=== PATIENT | male | born 1965 | race African-American/Black ===

== ENCOUNTER 2022-12-16 04:10 | Day surgery (SDC) | payer OTHER ==
[2022-12-14 11:00] VITALS: BMI 34.2
[~2022-12-16 04:10] MED LIST: BUPIVACAINE HCL/PF 0.75% 10 ML VIAL PNB ONE; IOHEXOL 180 MG/1 ML ML IJ ONE; LIDOCAINE 1% P/F 10 MG/ML VIAL PNB ONE
[2022-12-16] MEDS ORDERED: LIDOCAINE HCL/PF 1% SDV 5ML VIAL ONE (07:25)
[2022-12-16] MEDS ORDERED: BUPIVACAINE HCL/PF 0.75% 10 ML VIAL ONE (07:25)
[2022-12-16 10:26] VITALS: RESP 18
[2022-12-16] MEDS ORDERED: BUPIVACAINE HCL/PF 0.75% 10 ML VIAL PNB ONE (11:26)
[2022-12-16] MEDS ORDERED: LIDOCAINE 1% P/F 10 MG/ML VIAL PNB ONE (11:29)
[2022-12-16 12:53] VITALS: BP 136/88; PULSE 64; TEMP 98.1
== END 2022-12-16 12:00 | disposition home or self-care (01) ==
LOC: JASU-SURG 04:10
PROVIDERS: ATTEND Pain Medicine Pain Medicine
PROC: 3E0T3BZ Introduction of Anesthetic Agent into Peripheral Nerves and Plexi, Percutaneous Approach (ICD-10-PCS; principal; 2022-12-16 11:00)
DX: M47.816 Spondylosis without myelopathy or radiculopathy, lumbar region (principal)
CPT/HCPCS: 76000-TC-FY

== ENCOUNTER 2023-01-24 04:30 | Day surgery (SDC) | payer OTHER ==
[2023-01-20 14:59] VITALS: BMI 34.2
[~2023-01-24 04:30] MED LIST changes: -IOHEXOL 180 MG/1 ML ML IJ ONE; -LIDOCAINE 1% P/F 10 MG/ML VIAL PNB ONE
[2023-01-24] MEDS ORDERED: BUPIVACAINE HCL/PF 0.75% 10 ML VIAL ONE (07:18)
[2023-01-24] MEDS ORDERED: LIDOCAINE HCL/PF 1% SDV 5ML VIAL ONE (07:19)
[2023-01-24] MEDS ORDERED: LIDOCAINE 1% P/F 10 MG/ML VIAL INF ONE ×2 (11:25)
[2023-01-24] MEDS ORDERED: BUPIVACAINE HCL/PF 0.75% 10 ML VIAL PNB ONE (11:29)
[2023-01-24 11:45] VITALS: RESP 20
[2023-01-24 12:32] VITALS: BP 130/86; PULSE 68; TEMP 98.6
[2023-01-24] MEDS ORDERED: ACETAMINOPHEN 500 MG TABLET (FP) PO PRN (16:19)
== END 2023-01-24 12:25 | disposition home or self-care (01) ==
LOC: JASU-SURG 04:30
PROVIDERS: ATTEND Pain Medicine Pain Medicine
PROC: 3E0T33Z Introduction of Anti-inflammatory into Peripheral Nerves and Plexi, Percutaneous Approach (ICD-10-PCS; 2023-01-24)
PROC: 3E0T3BZ Introduction of Anesthetic Agent into Peripheral Nerves and Plexi, Percutaneous Approach (ICD-10-PCS; principal; 2023-01-24 08:45)
DX: M47.816 Spondylosis without myelopathy or radiculopathy, lumbar region (principal)
CPT/HCPCS: 76000-TC-FY

== ENCOUNTER 2023-04-18 05:31 | Day surgery (SDC) | payer OTHER ==
[2023-04-17 12:35] VITALS: BMI 34.5
[~2023-04-18 05:31] MED LIST changes: +BUPIVACAINE HCL/PF 0.75% 10 ML VIAL NR ONE; -BUPIVACAINE HCL/PF 0.75% 10 ML VIAL PNB ONE; +DEXAMETHASONE SOD PHOSPHATE 10 MG/1 ML VIAL IM ONE; +LIDOCAINE HCL 1% PRESERVATIVE FREE - 30ML VIAL IJ ONE; +LIDOCAINE HCL/PF 2% SDV 5ML VIAL INF ONE
[2023-04-18] MEDS ORDERED: BUPIVACAINE HCL/PF 0.75% 10 ML VIAL ONE (07:59)
[2023-04-18] MEDS ORDERED: LIDOCAINE HCL/PF 1% SDV 5ML VIAL ONE (08:00)
[2023-04-18] MEDS ORDERED: DEXAMETHASONE SOD PHOSPHATE 10 MG/1 ML VIAL ONE (08:00)
[2023-04-18 12:14] VITALS: RESP 18
[2023-04-18] MEDS ORDERED: DEXAMETHASONE SOD PHOSPHATE 10 MG/1 ML VIAL IM ONE ×2 (13:41→13:56)
[2023-04-18] MEDS ORDERED: LIDOCAINE HCL/PF 2% SDV 5ML VIAL INF ONE ×2 (13:41→13:48)
[2023-04-18] MEDS ORDERED: BUPIVACAINE HCL/PF 0.75% 10 ML VIAL NR ONE ×2 (13:41→13:56)
[2023-04-18] MEDS ORDERED: LIDOCAINE HCL 1% PRESERVATIVE FREE - 30ML VIAL IJ ONE (13:41)
[2023-04-18 14:29] VITALS: BP 152/70; PULSE 60; TEMP 98.2
[2023-04-18] MEDS ORDERED: ACETAMINOPHEN 500 MG TABLET (FP) PO PRN (16:07)
== END 2023-04-18 14:29 | disposition home or self-care (01) ==
LOC: JASU-SURG 05:31
PROVIDERS: ATTEND Pain Medicine Pain Medicine
PROC: 015B3ZZ Destruction of Lumbar Nerve, Percutaneous Approach (ICD-10-PCS; principal; 2023-04-18 13:15)
DX: M47.816 Spondylosis without myelopathy or radiculopathy, lumbar region (principal)
CPT/HCPCS: 76000-TC-FY; J1100

== ENCOUNTER 2023-07-25 05:22 | Day surgery (SDC) | payer OTHER ==
[2023-07-07 14:31] VITALS: BMI 34.5
[~2023-07-25 05:22] MED LIST changes: +ACETAMINOPHEN 500 MG TABLET (FP) PO PRN; -BUPIVACAINE HCL/PF 0.75% 10 ML VIAL NR ONE; -DEXAMETHASONE SOD PHOSPHATE 10 MG/1 ML VIAL IM ONE; -LIDOCAINE HCL 1% PRESERVATIVE FREE - 30ML VIAL IJ ONE; -LIDOCAINE HCL/PF 2% SDV 5ML VIAL INF ONE
[2023-07-25] MEDS ORDERED: LIDOCAINE HCL/PF 2% SDV 5ML VIAL ONE (10:22)
[2023-07-25] MEDS ORDERED: BUPIVACAINE HCL/PF 0.75% 10 ML VIAL ONE (10:22)
[2023-07-25] MEDS ORDERED: LIDOCAINE HCL/PF 1% SDV 5ML VIAL ONE (10:22)
[2023-07-25] MEDS ORDERED: DEXAMETHASONE SOD PHOSPHATE 10 MG/1 ML VIAL ONE (10:22)
[2023-07-25] MEDS ORDERED: ACETAMINOPHEN 500 MG TABLET (FP) PO PRN (11:49)
[2023-07-25] MEDS ORDERED: BUPIVACAINE HCL/PF 0.75% 10 ML VIAL NR ONE (14:39)
[2023-07-25] MEDS ORDERED: DEXAMETHASONE SOD PHOSPHATE 10 MG/1 ML VIAL IM ONE (14:39)
[2023-07-25] MEDS ORDERED: LIDOCAINE HCL/PF 2% SDV 5ML VIAL INF ONE (14:39)
[2023-07-25] MEDS ORDERED: LIDOCAINE HCL 1%, 10 MG/ML (50 mL VIAL) NR ONE (14:39)
[2023-07-25 15:40] VITALS: BP 141/90; PULSE 60; RESP 16; TEMP 98.2
== END 2023-07-25 15:45 | disposition home or self-care (01) ==
LOC: JASU-SURG 05:22
PROVIDERS: ATTEND Pain Medicine Pain Medicine
PROC: 015B3ZZ Destruction of Lumbar Nerve, Percutaneous Approach (ICD-10-PCS; principal; 2023-07-25 13:15)
DX: M47.816 Spondylosis without myelopathy or radiculopathy, lumbar region (principal)
CPT/HCPCS: 76000-TC-FY; J1100

== ENCOUNTER 2024-04-19 04:20 | Day surgery (SDC) | payer OTHER ==
[2024-04-18 13:20] VITALS: BMI 33.7
[2024-04-19] MEDS: BUPIVACAINE 0.75% IN DEXTROSE/PF 2ML AMPULE NR ONE
[~2024-04-19 04:20] MED LIST changes: +ACETAMINOPHEN 500 MG TABLET (FP) PO ONE; -ACETAMINOPHEN 500 MG TABLET (FP) PO PRN
[2024-04-19] MEDS ORDERED: SODIUM CHLORIDE 0.9% P/F 10 ML VIAL IJ ONE (12:29)
[2024-04-19] MEDS: LIDOCAINE HCL 1% PRESERVATIVE FREE - 30ML VIAL PNB ONE ×3 (12:39)
[2024-04-19] MEDS: IOHEXOL 180 MG/1 ML ML IJ ONE (12:40)
[2024-04-19] MEDS: LIDOCAINE HCL/PF 2% SDV 5ML VIAL PNB ONE ×2 (12:41)
[2024-04-19] MEDS: DEXAMETHASONE SOD PHOSPHATE 10 MG/1 ML VIAL IVPUSH ONE ×2 (12:41)
[2024-04-19 13:04] VITALS: BP 130/85; PULSE 67; RESP 20; TEMP 97.3
== END 2024-04-19 13:08 | disposition home or self-care (01) ==
LOC: JASU-SURG 04:20
PROVIDERS: ATTEND Pain Medicine Pain Medicine
PROC: 3E0R3BZ Introduction of Anesthetic Agent into Spinal Canal, Percutaneous Approach (ICD-10-PCS; 2024-04-19)
PROC: 3E0R33Z Introduction of Anti-inflammatory into Spinal Canal, Percutaneous Approach (ICD-10-PCS; principal; 2024-04-19 12:36)
DX: M48.061 Spinal stenosis, lumbar region without neurogenic claudication (principal); M54.16 Radiculopathy, lumbar region
CPT/HCPCS: 76000-TC-FY; J1100

== ENCOUNTER 2024-10-17 04:39 | Day surgery (SDC) | payer OTHER ==
[2024-10-04 17:13] VITALS: BMI 33.5
[2024-10-17] MEDS ORDERED: LIDOCAINE HCL/PF 1% SDV 5ML VIAL ONE (07:50)
[2024-10-17] MEDS ORDERED: DEXAMETHASONE SOD PHOSPHATE 10 MG/1 ML VIAL ONE (07:50)
[2024-10-17 09:25] VITALS: RESP 18
[2024-10-17] MEDS ORDERED: ACETAMINOPHEN 500 MG TABLET (FP) PO PRN (09:28)
[2024-10-17] MEDS: LIDOCAINE HCL 1% PRESERVATIVE FREE - 30ML VIAL IJ ONE ×3 (10:09)
[2024-10-17] MEDS: IOHEXOL 180 MG/1 ML ML IJ ONE ×3 (10:13)
[2024-10-17] MEDS: DEXAMETHASONE SOD PHOSPHATE 10 MG/1 ML VIAL IM ONE ×3 (10:13)
[2024-10-17 11:58] VITALS: BP 123/80; PULSE 65; TEMP 98.6
== END 2024-10-17 10:42 | disposition home or self-care (01) ==
LOC: JASU-SURG 04:39
PROVIDERS: ATTEND Pain Medicine Pain Medicine
PROC: 3E0R3BZ Introduction of Anesthetic Agent into Spinal Canal, Percutaneous Approach (ICD-10-PCS; 2024-10-17)
PROC: 3E0R33Z Introduction of Anti-inflammatory into Spinal Canal, Percutaneous Approach (ICD-10-PCS; principal; 2024-10-17 10:15)
DX: M48.061 Spinal stenosis, lumbar region without neurogenic claudication (principal); M54.16 Radiculopathy, lumbar region
CPT/HCPCS: 76000-TC-FY; J1100

== ENCOUNTER 2024-12-05 07:08 | Day surgery (SDC) | payer OTHER ==
[2024-12-02 14:02] VITALS: BMI 33.5
[2024-12-05] MEDS ORDERED: LIDOCAINE HCL/PF 1% SDV 5ML VIAL ONE (07:35)
[2024-12-05] MEDS ORDERED: BUPIVACAINE HCL/PF 0.5% (5MG/ML) 10 ML VIAL ONE (07:35)
[2024-12-05 08:11] VITALS: RESP 20
[2024-12-05] MEDS ORDERED: ACETAMINOPHEN 500 MG TABLET (FP) PO PRN (08:39)
[2024-12-05] MEDS: LIDOCAINE 1% P/F 10 MG/ML VIAL INF ONE ×2 (09:48)
[2024-12-05] MEDS: IOHEXOL 180 MG/1 ML ML IT ONE ×2 (09:50)
[2024-12-05] MEDS: DEXAMETHASONE SOD PHOSPHATE 10 MG/1 ML VIAL IM ONE ×2 (09:51)
[2024-12-05 10:11] VITALS: BP 137/84; PULSE 68; TEMP 97
== END 2024-12-05 11:25 | disposition home or self-care (01) ==
LOC: JASU-SURG 07:08
PROVIDERS: ATTEND Pain Medicine Pain Medicine
PROC: 3E0R3BZ Introduction of Anesthetic Agent into Spinal Canal, Percutaneous Approach (ICD-10-PCS; 2024-12-05)
PROC: 3E0R33Z Introduction of Anti-inflammatory into Spinal Canal, Percutaneous Approach (ICD-10-PCS; principal; 2024-12-05 09:15)
DX: M54.16 Radiculopathy, lumbar region (principal); M48.061 Spinal stenosis, lumbar region without neurogenic claudication
CPT/HCPCS: 76000-TC-FY; J1100

== ENCOUNTER 2025-02-22 09:56 | Emergency (ER) | payer OTHER ==
[2025-02-22 10:04] VITALS: BMI 45.3
[2025-02-22] MEDS ORDERED: ACETAMINOPHEN 500 MG TABLET (FP) ONE (10:41)
[2025-02-22] MEDS: ACETAMINOPHEN 500 MG TABLET (FP) PO ONE (10:47)
[2025-02-22 11:34] LABS: THROAT:GRP A STREP NOT DETECTED (NOTDETECTED)
[2025-02-22] MEDS: SODIUM CHLORIDE FOR INHALATION 3 ML VIAL.NEB IH ONE ×2 (11:39→13:07)
[2025-02-22 13:32] VITALS: BP 147/85; PULSE 75; RESP 19; TEMP 98.1
[2025-02-22 19:27] LABS: HCV DIAGNOSTIC IN-HOUSE W/RFLX NON-REACTIVE (NONREACTIVE)
[2025-02-22 19:28] LABS: HIV INTERPRETATION NEGATIVE (NEGATIVE)
== END 2025-02-22 13:43 | disposition home or self-care (01) ==
LOC: JER 09:56
DX: J18.9 Pneumonia, unspecified organism (principal); M79.10 Myalgia, unspecified site; R09.81 Nasal congestion; R50.9 Fever, unspecified; R63.0 Anorexia
CPT/HCPCS: 0241U-QW; 36415; 71046-TC-FY; 86803; 87389; 87651; 93005; 93010; 99285-25

== ENCOUNTER 2025-04-25 06:08 | Day surgery (SDC) | payer OTHER ==
[2025-04-25] MEDS ORDERED: BUPIVACAINE HCL/PF 0.75% 10 ML VIAL ONE (07:10)
[2025-04-25] MEDS ORDERED: LIDOCAINE HCL/PF 1% SDV 5ML VIAL ONE (07:11)
[2025-04-25 09:44] VITALS: BP 127/78; PULSE 65; RESP 65; TEMP 97.2
[2025-04-25] MEDS ORDERED: ACETAMINOPHEN 500 MG TABLET (FP) PO PRN (15:59)
== END 2025-04-25 10:27 | disposition home or self-care (01) ==
LOC: JASU-SURG 06:08
PROVIDERS: ATTEND Pain Medicine Pain Medicine
PROC: 3E0T3BZ Introduction of Anesthetic Agent into Peripheral Nerves and Plexi, Percutaneous Approach (ICD-10-PCS; principal; 2025-04-25 09:14)
PROC: 3E0T33Z Introduction of Anti-inflammatory into Peripheral Nerves and Plexi, Percutaneous Approach (ICD-10-PCS; 2025-04-25 09:14)
DX: M47.816 Spondylosis without myelopathy or radiculopathy, lumbar region (principal)
CPT/HCPCS: 76000-TC-FY